=== PATIENT | male | born 1985 | race Caucasian/White ===

== ENCOUNTER 2020-04-19 16:33 | Emergency (ER) | payer SELFPAY ==
[~2020-04-19] VITALS: Ht 185.4 cm; Wt 86.0 kg
[2020-04-19 19:18] VITALS: BP 127/91
[2020-04-19] MEDS ORDERED: METH4TAB2 PO (22:28)
[2020-04-19] MEDS ORDERED: FAMO-63 PO (22:28)
[2020-04-19] MEDS ORDERED: DIPH25TA64 PO (22:28)
--- NOTE | 2020-04-19 22:28 | PHYS DOC ---
General Adult EDM: Chief Complaint: SKIN RASH/ABSCESS HPI: HPI: Patient is a 34 year old male who presents with currently seen at [facility] but was staying at hotels using their soap sleeping and there bedsheets. He began having a generalized hive rash all over his body was red and very itchy. Rates his overall discomfort a 8 out of 10. He states has not been taking anything for it. Review of Systems: Review of Systems: Constitutional: Denies fever or chills. [] Eyes: Denies change in visual acuity. [] HENT: Denies nasal congestion or sore throat. [] Respiratory: Denies cough or shortness of breath. [] Cardiovascular: Denies chest pain or edema. [] GI: Denies abdominal pain, nausea, vomiting, bloody stools or diarrhea. [] : Denies dysuria. [] Musculoskeletal: Denies back pain or joint pain. [] Integument: + Generalized allergic hives rash. [] Neurologic: Denies headache, focal weakness or sensory changes. [] Endocrine: Denies polyuria or polydipsia. [] Lymphatic: Denies swollen glands. [] Psychiatric: Denies depression or anxiety. [] Heart Score: Risk Factors: Risk Factors: DM, Current or recent (<one month) smoker, HTN, HLP, family history of CAD, obesity. Risk Scores: Score 0 - 3: 2.5% MACE over next 6 weeks - Discharge Home Score 4 - 6: 20.3% MACE over next 6 weeks - Admit for Clinical Observation Score 7 - 10: 72.7% MACE over next 6 weeks - Early Invasive Strategies Allergies: Allergies: Allergies Coded Allergies Type Severity Reaction Last Updated Verified No Known Drug Allergies 04/19/20 No Physical Exam: PE: Constitutional: Well developed, well nourished, no acute distress, non-toxic appearance. [] HENT: Normocephalic, atraumatic, bilateral external ears normal, oropharynx moist, no oral exudates, nose normal. [] Eyes: PERRLA, EOMI, conjunctiva normal, no discharge. [] Neck: Normal range of motion, no tenderness, supple, no stridor. [] Cardiovascular:Heart rate regular rhythm, no murmur [] Lungs & Thorax: Bilateral breath sounds clear to auscultation [] Abdomen: Bowel sounds normal, soft, no tenderness, no masses, no pulsatile masses. [] Skin: Warm, dry, no erythema, generalized body hives rash. [] Back: No tenderness, no CVA tenderness. [] Extremities: No tenderness, no cyanosis, no clubbing, ROM intact, no edema. [] Neurologic: Alert and oriented X 3, normal motor function, normal sensory function, no focal deficits noted. [] Psychologic: Affect normal, judgement normal, mood normal. [] Current Patient Data: Vital Signs: Vital Signs Date Time Temp Pulse Resp B/P (MAP) Pulse Ox O2 Delivery O2 Flow Rate FiO2 04/19/20 16:51 97.8 70 16 145/99 (114) 99 Room Air 97.8 EKG: EKG: [] Radiology/Procedures: Radiology/Procedures: [] Course & Med Decision Making: Course & Med Decision Making Pertinent Labs and Imaging studies reviewed. (See chart for details) See HPI. Alert and oriented x4. Ambulatory with steady gait. Speaks in full clear sentences. There is no swelling to the face but the rash is on his forehead. No signs of infection. No swelling or hives inside the mouth and uvula is midline and nonswollen. Patient denies chest pain, shortness of air, dizziness, nausea, abdominal pain, fevers. Patient is placed on a Medrol Dosepak, Pepcid, Benadryl. [] Dragon Disclaimer: Dragon Disclaimer: This electronic medical record was generated, in whole or in part, using a voice recognition dictation system. Departure Departure Impression: Primary Impression: Hives Additional Impression: Rash due to allergy Disposition: 01 DC HOME SELF CARE/HOMELESS Condition: STABLE Referrals: NO PCP (PCP) Patient Instructions: Hives Additional Instructions: Take medications as prescribed. Drink plenty of fluids. Follow-up with your primary care physician. Try to stay away from the allergic trigger that caused the rash. Scripts Diphenhydramine Hcl (BENADRYL ALLERGY) 25 Mg Tablet 1 TAB PO Q6HRS for 7 Days, #28 TAB 0 Refills Prov: VIRGIL LEDBETTER ORAL HYGIENIST 04/19/20 Famotidine (PEPCID) 20 Mg Tablet 20 MG PO BID, #14 TAB Prov: VIRGIL LEDBETTER ORAL HYGIENIST 04/19/20 Methylprednisolone (MEDROL) 4 Mg Tab.ds.pk 1 PKG PO UD, #1 PKG Prov: VIRGIL LEDBETTER APRN 04/19/20 VIRGIL LEDBETTER APRN Apr 19, 2020 22:28
[2020-04-19] MEDS ORDERED: predniSONE 10 MG TABLET PO ONE (23:00)
[2020-04-19] MEDS ORDERED: FAMOTIDINE 20 MG TABLET. PO ONE (23:00)
[2020-04-19] MEDS ORDERED: diphenhydrAMINE HCL 25 MG CAPSULE PO ONE (23:00)
== END 2020-04-19 22:43 | disposition home or self-care (01) ==
LOC: ER 16:33
DX: L50.9 Urticaria, unspecified (principal); R21 Rash and other nonspecific skin eruption
CPT/HCPCS: 99283